=== PATIENT | female | born 1955 | race Caucasian/White ===

== ENCOUNTER 2018-08-18 22:19 | Emergency (ER) | payer OTHER ==
[~2018-08-18] VITALS: Ht 162.6 cm; Wt 67.1 kg
[2018-08-18 22:36] LABS: BASOPHILS % 0.7 % (0.0-2.0); EOSINOPHILS % 4.3 % (0.0-5.0); HEMATOCRIT. 34.2 % (36.0-48.0); HEMOGLOBIN. 12.2 g/dL (12.0-16.0); LYMPHOCYTES % 28.9 % (20.0-50.0); MEAN CORPUSCULAR VOLUME 90.1 fL (81.0-99.0); MEAN PLATELET VOLUME 8.9 fl (7.4-10.4); MONOCYTES % 5.8 % (2.0-8.0); NEUTROPHILS % 60.3 % (40.0-76.0); PLATELET 190 x1000/uL (130-400); RED BLOOD CELL COUNT 3.79 mill/uL (4.2-5.4); RED CELL DISTRIBUTION WIDTH 15.6 % (11.6-14.6)
[2018-08-18 22:40] LABS: CHLORIDE 101 mEq/L (98-107)
[2018-08-18 22:42] LABS: INR 0.9; PROTHROMBIN TIME 9.5 sec (9.6-11.0)
[2018-08-18 22:47] LABS: LDL CHOLESTEROL 85 mg/dL (5-100)
[2018-08-19] MEDS ORDERED: ASPIRIN 325MG TABLET PO ONE (02:45)
[2018-08-19 05:55] VITALS: BP 107/50
== END 2018-08-19 06:09 | disposition short-term general hospital (02) ==
LOC: ER 22:19 → EDBEDREQ 08-19 01:04 → EDBEDREQDT 08-19 01:04 → EDBEDREQTM 08-19 01:04 → ENRESERV 08-19 02:37 → CANBEDREQ 08-19 04:07 → ER 08-19 06:09
DX: I63.9 Cerebral infarction, unspecified (principal); E11.9 Type 2 diabetes mellitus without complications; I10 Essential (primary) hypertension; Z98.890 Other specified postprocedural states
CPT/HCPCS: 36415; 70450; 71045; 80053; 82962; 83721; 84484; 85025; 85610; 93005; 99291; Z7610